=== PATIENT | female | born 1970 | race Hispanic/Latino ===

== ENCOUNTER 2021-02-19 08:43 | Emergency (ER) | payer SELFPAY ==
--- NOTE | 2021-02-19 11:14 | RAD REPORT ---
EXAM DESCRIPTION: Shoulder Right 2 View - 02/19/2021 10:40 am CLINICAL HISTORY: PAIN COMPARISON: No comparisons TECHNIQUE: Internal and external rotation views of the right shoulder were obtained. FINDINGS: There is no fracture or dislocation. AC joint is normal in appearance. Acromial humeral j oint space is normal. No abnormal soft tissue calcifications. No significant degenerative change at t he shoulder joint. IMPRESSION: Negative two-view right shoulder examination for acute or significant finding. Concerns for rotator cuff tear, other internal derangement or occult bone process can be addressed wi MR imaging.
--- NOTE | 2021-02-19 11:15 | RAD REPORT ---
EXAM DESCRIPTION: RAD - C Spine Ap/Lat - 02/19/2021 10:40 am CLINICAL HISTORY: NUMBNESS/TINGLING COMPARISON: No comparisons FINDINGS: Cervical bodies are normal in height and alignment. No fracture or acute bony process seen . No disc space narrowing. Minimal endplate spurring changes are present without central canal encroa chment. Minimal facet degenerative change. There is no prevertebral soft tissue thickening or other suspicious soft tissue finding. IMPRESSION: Negative cervical spine examination for acute or significant finding. Patient has minimal degenerative change.
[2021-02-19] MEDS ORDERED: DIAZEPAM 5 MG TABLET ONE (11:45)
[2021-02-19] MEDS ORDERED: HYDROCODONE/APAP 5/325 MG TAB ONE (11:46)
--- NOTE | 2021-02-19 12:18 | EDPHYS ---
Physician Documentation [facility] Name: Debby Osuna Age: 50 yrs Sex: Female : 1970 Arrival Date: 02/19/2021 Time: 08:47 Bed 8 Private MD: ED Physician Gabriel Tariq HPI: 02/19 10:19 This 50 yrs old Female presents to ER via Ambulatory with complaints of jmm Shoulder Pain, Arm Pain. 10:19 The patient or guardian complains of pain. Onset: The symptoms/episode began/occurred jmm gradually, 3 day(s) ago. Modifying factors: the symptoms are alleviated by nothing. The symptoms are aggravated by movement. Associated signs and symptoms: Pertinent positives: Numbness in right arm. This is a 50 year old female with no chronic medical conditions that presents to the ED with complaints of right shoulder pain worsening over the past 3 days. Pain/tingling radiates down the entire arm with neck pain. Denies weakness, chest pain. Historical: - Allergies: 09:13 No Known Allergies; ss - Home Meds: 09:13 None [Active]; ss - PMHx: 09:13 None; ss - PSHx: 09:13 ; ss - Immunization history:: Adult Immunizations up to date. - Social history:: Smoking status: Patient denies any tobacco usage or history of. ROS: 10:19 Constitutional: Negative for fever, chills, and weight loss, Cardiovascular: Negative jmm for chest pain, palpitations, and edema, Respiratory: Negative for shortness of breath, cough, wheezing, and pleuritic chest pain. 10:19 MS/extremity: Positive for pain. 10:19 All other systems are negative. Exam: 10:19 Constitutional: This is a well developed, well nourished patient who is awake, alert, jmm and in no acute distress. Head/Face: atraumatic. Eyes: EOMI, no conjunctival erythema appreciated ENT: Moist Mucus Membranes Neck: Trachea midline, Supple Chest/axilla: Normal chest wall appearance and motion. Cardiovascular: Regular rate and rhythm. 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 10:19 Skin: Appearance: Color: normal in color. 10:19 Neuro: Orientation: is normal, Mentation: is normal, Memory: is normal. 10:19 Psych: Behavior/mood is pleasant, cooperative. Vital Signs: 09:11 BP 121 / 80; Pulse 75; Resp 15; Temp 98.3(TE); Pulse Ox 100% on R/A; Height 5 ft. 5 in. ss (165.10 cm); Pain 10/10; 10:47 BP 116 / 79; Pulse 73; Resp 17; Pulse Ox 100% on R/A; Pain 10/10; ap3 MDM: 10:29 Patient medically screened. [facility] 12:16 Data reviewed: vital signs, nurses notes. Counseling: I had a detailed discussion with susy the patient and/or guardian regarding: the historical points, exam findings, and any diagnostic results supporting the discharge/admit diagnosis, radiology results, the need for outpatient follow up, to return to the emergency department if symptoms worsen or persist or if there are any questions or concerns that arise at home. ED course: Pain has decreased. Most likely cervical radiculopathy vs internal derangement of right shoulder from previous injury. Advised to follow up with ortho for further evaluation. Family understood and agrees with the plan of care. . 02/19 09:51 Order name: XRAY Shoulder RIGHT 2 view; Complete Time: 11:18 rn 02/19 10:18 Order name: XRAY C Spine Ap/lat; Complete Time: 11:18 [facility] Administered Medications: 11:30 Drug: [place] (HYDROcodone-acetaminophen) 5 mg-325 mg 1 tabs Route: PO; ap3 12:27 Follow up: Response: RASS: Alert and Calm (0) ap3 11:30 Drug: Valium (diazepam) 5 mg Route: PO; ap3 12:27 Follow up: Response: No adverse reaction ap3 Disposition: 13:13 Co-signature as Attending Physician, Gabriel Tariq MD. rn Disposition: 02/19/21 12:18 Discharged to Home. Impression: Pain in shoulder, Radiculopathy, cervical region. - Condition is Stable. - Discharge Instructions: Cervical Radiculopathy. - Prescriptions for Ultracet 37.5- 325 mg Oral Tablet - take 1 tablet by ORAL route every 6 hours - for up to 5 days; do not exceed 8 tablets per day.; 20 tablet. Zanaflex 4 mg Oral Tablet - take 1 tablet by ORAL route every 8 hours As needed; 20 tablet. Medrol (Enrike) 4 mg Oral Tablets, Dose Pack - take 1 tablet by ORAL route as directed - follow package instructions; 1 packet. - Medication Reconciliation Form, Thank You Letter, Antibiotic Education, Prescription Opioid Use form. - Follow up: Javier Soni MD; When: 2 - 3 days; Reason: Recheck today's complaints, Continuance of care, Re-evaluation by your physician. Follow up: Jw Torres MD; When: 2 - 3 days; Reason: Recheck today's complaints, Continuance of care, Re-evaluation by your physician. Signatures: Dispatcher [employer] EDMS Carlos Chilel PA PA jmm Nieto, Roman, MD MD rn Smirch, Shelby, RN RN ss Nita Newton RN RN ap3 Corrections: (The following items were deleted from the chart) 12:34 12:18 02/19/2021 12:18 Discharged to Home. Impression: Pain in shoulder; Radiculopathy, ap3 cervical region. Condition is Stable. Forms are Medication Reconciliation Form, Thank You Letter, Antibiotic Education, Prescription Opioid Use. Follow up: Dr. Javier Soni; When: 2 - 3 days; Reason: Recheck today's complaints, Continuance of care, Re-evaluation by your physician. Follow up: Jw Torres; When: 2 - 3 days; Reason: Recheck today's complaints, Continuance of care, Re-evaluation by your physician. susy
--- NOTE | 2021-02-19 12:18 | ER ---
Nurse's Notes [facility] Name: Debby Osuna Age: 50 yrs Sex: Female : 1970 Arrival Date: 02/19/2021 Time: 08:47 Bed 8 Private MD: Diagnosis: Pain in shoulder;Radiculopathy, cervical region Presentation: 02/19 09:11 Chief complaint: Patient states: R shoulder pain x 3 years, but became much worse with ss decreased range of motion since yesterday. Coronavirus screen: Client denies travel out of the [place] in the last 14 days. Ebola Screen: Patient denies exposure to infectious person. Patient denies travel to an Ebola-affected area in the 21 days before illness onset. Initial Sepsis Screen: Does the patient meet any 2 criteria? No. Patient's initial sepsis screen is negative. Does the patient have a suspected source of infection? No. Patient's initial sepsis screen is negative. Risk Assessment: Do you want to hurt yourself or someone else? Patient reports no desire to harm self or others. Onset of symptoms is unknown. 09:11 Method Of Arrival: Ambulatory ss 09:11 Acuity: RAYO 4 ss Historical: - Allergies: 09:13 No Known Allergies; ss - Home Meds: 09:13 None [Active]; ss - PMHx: 09:13 None; ss - PSHx: 09:13 ; ss - Immunization history:: Adult Immunizations up to date. - Social history:: Smoking status: Patient denies any tobacco usage or history of. Screenin:47 Abuse screen: Denies threats or abuse. Nutritional screening: No deficits noted. ap3 Tuberculosis screening: No symptoms or risk factors identified. Fall Risk None identified. Assessment: 10:44 General: Appears uncomfortable, Behavior is calm, cooperative, appropriate for age. ap3 Pain: Complains of pain in anterior aspect of right shoulder and posterior aspect of right shoulder Pain currently is 10 out of 10 on a pain scale. Pain began years ago. Neuro: Level of Consciousness is awake, alert, obeys commands, Oriented to person, place, time, situation, Gait is steady. Cardiovascular: Patient's skin is warm and dry. Respiratory: Airway is patent Respiratory effort is even, unlabored, Respiratory pattern is regular, symmetrical. EENT:. Vital Signs: 09:11 BP 121 / 80; Pulse 75; Resp 15; Temp 98.3(TE); Pulse Ox 100% on R/A; Height 5 ft. 5 in. ss (165.10 cm); Pain 10/10; 10:47 BP 116 / 79; Pulse 73; Resp 17; Pulse Ox 100% on R/A; Pain 10/10; ap3 ED Course: 08:47 Patient arrived in ED. mr 09:13 Triage completed. ss 09:13 Arm band placed on right wrist. ss 09:52 Carlos Chilel PA is PHCP. m 09:52 Gabriel Tariq MD is Attending Physician. jmm 10:40 XRAY Shoulder RIGHT 2 view In Process Unspecified. EDMS 10:40 XRAY C Spine Ap/lat In Process Unspecified. EDMS 10:44 Nita Newton, BRITNEY is Primary Nurse. ap3 10:48 Patient has correct armband on for positive identification. Bed in low position. Call ap3 light in reach. Adult w/ patient. Pulse ox on. NIBP on. 12:17 Javier Soni MD is Referral Physician. [facility] 12:17 Jw Torres MD is Referral Physician. [facility] 12:34 Patient did not have IV access during this emergency room visit. ap3 Administered Medications: 11:30 Drug: [place] (HYDROcodone-acetaminophen) 5 mg-325 mg 1 tabs Route: PO; ap3 12:27 Follow up: Response: RASS: Alert and Calm (0) ap3 11:30 Drug: Valium (diazepam) 5 mg Route: PO; ap3 12:27 Follow up: Response: No adverse reaction ap3 Outcome: 12:18 Discharge ordered by . [facility] 12:33 Discharged to home ap3 12:33 Condition: stable 12:33 Discharge instructions given to patient, family, Instructed on discharge instructions, follow up and referral plans. medication usage, Demonstrated understanding of instructions, follow-up care, medications, Prescriptions given X 3. 12:34 Patient left the ED. ap3 Signatures: Dispatcher [employer] EDMS Carlos Chilel PA PA jmm Anais RodriguezChelsea guajardo RN RN Nita Newton RN RN ap3
[2021-02-19 12:40] VITALS: TEMP 98.3; O2SAT 100
[2021-02-19 12:41] VITALS: BP 116/79
== END 2021-02-19 12:34 | disposition home or self-care (01) ==
LOC: ER 08:43
DX: M54.12 Radiculopathy, cervical region (principal)
CPT/HCPCS: 72040; 99284

== ENCOUNTER 2022-05-26 12:20 | Emergency (ER) | payer SELFPAY ==
--- NOTE | 2022-05-26 12:54 | ER ---
Nurse's Notes [facility] Name: Debby Osuna Age: 51 yrs Sex: Female : 1970 Arrival Date: 05/26/2022 Time: 12:22 Bed Waiting Private MD: Diagnosis: Otitis media, unspecified, right ear Presentation: 05/26 12:44 Chief complaint: Patient states: she started having right ear pain that radiated into ap3 her jaw yesterday. She also reports that she started having some intermittent nausea and dizziness that also began yesterday. Coronavirus screen: Client presents with at least one sign or symptom that may indicate coronavirus-19. Ebola Screen: No symptoms or risks identified at this time. Initial Sepsis Screen: Does the patient meet any 2 criteria? No. Patient's initial sepsis screen is negative. Does the patient have a suspected source of infection? No. Patient's initial sepsis screen is negative. Risk Assessment: Do you want to hurt yourself or someone else? Patient reports no desire to harm self or others. Onset of symptoms was May 25, 2022. 12:44 Method Of Arrival: Ambulatory ap3 12:44 Acuity: RAYO 4 ap3 Triage Assessment: 12:48 General: Appears uncomfortable, Behavior is calm, cooperative. Pain: Complains of pain ap3 in right ear Pain radiates to right cheek and right jaw. EENT: Reports pain in right ear. Neuro: Level of Consciousness is awake, alert, obeys commands, Oriented to person, place, time, situation, Gait is steady, Speech is normal, Facial symmetry appears normal. Cardiovascular: Patient's skin is warm and dry. Respiratory: Airway is patent Respiratory effort is even, unlabored. GI: Reports nausea. 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 - Social history:: Smoking status: Patient denies any tobacco usage or history of. Screenin:50 Abuse screen: Denies threats or abuse. Nutritional screening: No deficits noted. ap3 Tuberculosis screening: No symptoms or risk factors identified. 14:08 Fall Risk None identified. ap3 Vital Signs: 12:44 BP 125 / 82; Pulse 73; Resp 18; Temp 98.2; Pulse Ox 100% ; Weight 68.04 kg; Height 5 ap3 ft. 4 in. (162.56 cm); 12:44 Body Mass Index 25.75 (68.04 kg, 162.56 cm) ap3 ED Course: 12:22 Patient arrived in ED. rg4 12:48 Triage completed. ap3 12:48 Ko Sebastian NP is PHCP. pm1 12:48 Jean Thompson MD is Attending Physician. pm1 12:49 Arm band placed on right wrist. ap3 14:08 Patient has correct armband on for positive identification. Adult w/ patient. ap3 14:08 No provider procedures requiring assistance completed. Patient did not have IV access ap3 during this emergency room visit. Administered Medications: 14:08 Not Given (Patient Refused): HYDROcodone-acetaminophen 5 mg-325 mg 1 tabs PO once ap3 Medication: 14:08 VIS not applicable for this client. ap3 Outcome: 12:54 Discharge ordered by . pm1 14:08 Discharged to home ambulatory. ap3 14:08 Condition: good 14:08 Discharge instructions given to patient, Instructed on discharge instructions, follow up and referral plans. medication usage, Demonstrated understanding of instructions, follow-up care, medications, Prescriptions given X 2. 14:08 Patient left the ED. ap3 Signatures: Ko Sebastian NP IDENTIFICATION CLERK pm1 [facility]wood rg4 Nita Newton RN RN ap3
--- NOTE | 2022-05-26 12:54 | EDPHYS ---
Physician Documentation [facility] Name: Debby Osuna Age: 51 yrs Sex: Female : 1970 Arrival Date: 05/26/2022 Time: 12:22 Bed Waiting Private MD: ED Physician Jean Thompson HPI: 05/26 12:51 This 51 yrs old Female presents to ER via Ambulatory with complaints of Right pm1 earache. 12:51 The patient presents with pain. pm1 12:51 The complaints affect the right ear. Onset: The symptoms/episode began/occurred pm1 yesterday. Modifying factors: The symptoms are alleviated by nothing, the symptoms are aggravated by nothing. Associated signs and symptoms: Pertinent positives: dizziness, nausea, Pertinent negatives: sore throat, vomiting, dental pain. Severity of symptoms: in the emergency department the symptoms are worse. The patient has not experienced similar symptoms in the past. The patient has not recently seen a physician. Patient with right earache onset yesterday that feels the same as her prior ear infection. Patient's pain radiates to her right jaw and right cheek. 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 - Social history:: Smoking status: Patient denies any tobacco usage or history of. ROS: 12:51 Constitutional: Negative for fever, chills, and weight loss. pm1 12:51 Cardiovascular: Negative for chest pain, palpitations, and edema, Respiratory: Negative for shortness of breath, cough, wheezing, and pleuritic chest pain, MS/Extremity: Negative for injury and deformity, Skin: Negative for injury, rash, and discoloration. 12:51 ENT: Positive for ear pain, Negative for drainage from ear(s), sore throat. 12:51 Abdomen/GI: Positive for nausea, Negative for abdominal pain, vomiting, diarrhea. 12:51 Neuro: Positive for dizziness. 12:51 All other systems are negative. Exam: 12:51 Constitutional: This is a well developed, well nourished patient who is awake, alert, pm1 and in no acute distress. Head/Face: Normocephalic, atraumatic. 12:51 Skin: Warm, dry with normal turgor. Normal color with no rashes, no lesions, and no evidence of cellulitis. MS/ Extremity: Pulses equal, no cyanosis. Neurovascular intact. Full, normal range of motion. 12:51 Eyes: Exam is negative for acute changes, Extraocular movements: no acute changes, Conjunctiva: no acute changes, no injection. 12:51 ENT: Exam is negative for acute changes, Mouth: no acute changes, Lips: normal, Oral mucosa: normal, pink and intact, moist, Gums: normal with healthy appearance. 12:51 Cardiovascular: Exam negative for acute changes, Rate: normal, Rhythm: regular, Pulses: no pulse deficits are appreciated. 12:51 Respiratory: Exam negative for acute changes, respiratory distress, shortness of breath. 12:51 Abdomen/GI: Exam negative for acute changes, Palpation: abdomen is soft and non-tender, in all quadrants. 12:51 Neuro: Exam negative for acute changes, Orientation: is normal, Mentation: is normal, Motor: is normal, moves all fours. Vital Signs: 12:44 BP 125 / 82; Pulse 73; Resp 18; Temp 98.2; Pulse Ox 100% ; Weight 68.04 kg; Height 5 ap3 ft. 4 in. (162.56 cm); 12:44 Body Mass Index 25.75 (68.04 kg, 162.56 cm) ap3 MDM: 12:51 Data reviewed: vital signs. Data interpreted: Pulse oximetry: on room air is 100 %. pm1 Interpretation: normal. Counseling: I had a detailed discussion with the patient and/or guardian regarding: the historical points, exam findings, and any diagnostic results supporting the discharge/admit diagnosis, the need for outpatient follow up, to return to the emergency department if symptoms worsen or persist or if there are any questions or concerns that arise at home. 12:54 Patient medically screened. pm1 Administered Medications: 14:08 Not Given (Patient Refused): HYDROcodone-acetaminophen 5 mg-325 mg 1 tabs PO once ap3 Disposition Summary: 05/26/22 12:54 Discharge Ordered Location: Home pm1 Problem: new pm1 Symptoms: have improved pm1 Condition: Stable pm1 Diagnosis - Otitis media, unspecified, right ear pm1 Followup: pm1 - With: Emergency Department - When: As needed - Reason: Worsening of condition Followup: pm1 - With: Private Physician - When: 2 - 3 days - Reason: Recheck today's complaints, Continuance of care, Re-evaluation by your physician Discharge Instructions: - Discharge Summary Sheet pm1 - Otitis Media, Adult, [id number] pm1 Forms: - Medication Reconciliation Form pm1 - Thank You Letter pm1 - Antibiotic Education pm1 - Prescription Opioid Use pm1 Prescriptions: - Amoxicillin 500 mg Oral Capsule - take 1 capsule by ORAL route every 8 hours for 10 days; 30 tablet; Refills: 0, pm1 Product Selection Permitted Signatures: Ko Sebastian NP IMPLEMENTATION MANAGER pm1 Nita Newton RN RN ap3
[2022-05-26] MEDS ORDERED: HYDROCODONE/APAP 5/325 MG TAB ONE (14:03)
[2022-05-26 14:25] VITALS: BP 125/82; TEMP 98.2; O2SAT 100
== END 2022-05-26 14:08 | disposition home or self-care (01) ==
LOC: ER 12:20
DX: H66.91 Otitis media, unspecified, right ear (principal)
CPT/HCPCS: 99282

== ENCOUNTER 2023-05-11 19:38 | Emergency (ER) | payer SELFPAY ==
[2023-05-11 20:55] LABS: Absolute Lymphocytes (CBC) 3.4 K/uL (0.7-4.9); Hematocrit 31.1 % (36.0-45.0); Lymphocytes % 45.1 % (15.3-44.8); MPV 9.5 fL (7.6-11.3); Protime INR 0.98; RBC Red Blood Cell Count 4.32 M/uL (3.86-4.86)
[2023-05-11 21:05] LABS: Magnesium 2.2 mg/dL (1.6-2.4); Troponin High Sensitivity 3.4 pg/mL (<58.9)
[2023-05-11] MEDS ORDERED: MECLIZINE HCL 12.5 MG TAB ONE (21:50)
[2023-05-11] MEDS ORDERED: POTASSIUM 25 MEQ EFFERV TAB ONE (21:50)
--- NOTE | 2023-05-11 22:06 | RAD REPORT ---
EXAM DESCRIPTION: CT - Head Brain Wo Cont - 05/11/2023 9:59 pm CLINICAL HISTORY: DIZZINESS COMPARISON: Head Brain Wo Cont dated 03/27/2017 TECHNIQUE: All CT scans are performed using dose optimization technique as appropriate and may inclu de automated exposure control or mA/KV adjustment according to patient size. FINDINGS: No intracranial hemorrhage, hydrocephalus or extra-axial fluid collection.No areas of brai n edema or evidence of midline shift. The paranasal sinuses and mastoids are clear. The calvarium is intact. IMPRESSION: No acute intracranial abnormality.
--- NOTE | 2023-05-11 23:41 | ER ---
Nurse's Notes [facility] Name: Debby Osuna Age: 52 yrs Sex: Female : 1970 Arrival Date: 05/11/2023 Time: 19:38 Bed 2 Private MD: Diagnosis: Dizziness and giddiness;Anemia, unspecified;Hypokalemia Presentation: 05/11 20:00 Chief complaint: Patient states: Dizziness onset yesterday. Pt states that she was seen cm10 at a clinic last week and was told that she was anemic and given iron supplements. Coronavirus screen: Vaccine status: Patient reports receiving the 2nd dose of the covid vaccine. Client denies travel out of the [place] in the last 14 days. Ebola Screen: Patient denies travel to an Ebola-affected area in the 21 days before illness onset. No symptoms or risks identified at this time. Initial Sepsis Screen: Does the patient meet any 2 criteria? No. Patient's initial sepsis screen is negative. Does the patient have a suspected source of infection? No. Patient's initial sepsis screen is negative. Risk Assessment: Do you want to hurt yourself or someone else? Patient reports no desire to harm self or others. Onset of symptoms was May 10, 2023. 20:00 Method Of Arrival: Ambulatory cm10 20:00 Acuity: RAYO 3 cm10 Triage Assessment: 20:02 General: Appears in no apparent distress. comfortable, Behavior is calm, cooperative. cm10 Pain: Denies pain. Neuro: No deficits noted. Level of Consciousness is awake, alert, Oriented to person, place, time, situation, Reports dizziness, since Yesterday. Cardiovascular: No deficits noted. Respiratory: No deficits noted. Airway is patent Respiratory effort is even, unlabored, Respiratory pattern is regular, symmetrical. Derm: No deficits noted. Skin is intact, Skin is pink, warm \T\ dry. Historical: - Allergies: 20:01 No Known Allergies; cm10 - Home Meds: 20:01 Iron CR Oral [Active]; cm10 - PMHx: 20:01 Anemia; vertigo; cm10 - Immunization history:: Adult Immunizations unknown. - Social history:: Smoking status: unknown. Screenin:46 [facility] ED Fall Risk Assessment (Adult) History of falling in the last 3 months, rv including since admission No falls in past 3 months (0 pts) Confusion or Disorientation No (0 pts) Intoxicated or Sedated No (0 pts) Impaired Gait No (0 pts) Mobility Assist Device Used No (0 pt) Altered Elimination No (0 pt) Score/Fall Risk Level 0 - 2 = Low Risk Oriented to surroundings, Maintained a safe environment, Educated pt \T\ family on fall prevention, incl call for assistance when getting out of bed, Assessed \T\ reinforced patient's understanding of fall precautions, Provided non-skid footwear, Hourly rounding (assess needs \T\ fall precautionary measures) done, Used ambulatory aids as needed (educated on \T\ assisted with), Used gait belt as appropriate. Abuse screen: Denies threats or abuse. Denies injuries from another. Nutritional screening: No deficits noted. Tuberculosis screening: No symptoms or risk factors identified. Assessment: 20:47 General: Appears comfortable, Behavior is calm, cooperative. Pain: Denies pain. Neuro: rv Level of Consciousness is awake, alert, obeys commands, Oriented to person, place, time, situation, Reports dizziness. Cardiovascular: Capillary refill < 3 seconds Rhythm is regular. Respiratory: Airway is patent Respiratory effort is even, unlabored. GI: No signs and/or symptoms were reported involving the gastrointestinal system. : No signs and/or symptoms were reported regarding the genitourinary system. 21:48 Reassessment: Patient appears in no apparent distress at this time. Patient and/or as6 family updated on plan of care and expected duration. Pain level reassessed. Patient is alert, oriented x 3, equal unlabored respirations, skin warm/dry/pink. Vital Signs: 20:00 BP 153 / 103; Pulse 75; Resp 16; Temp 98.1(TE); Pulse Ox 100% on R/A; Weight 68.95 kg; cm10 Pain 0/10; 20:50 BP 139 / 87 Supine; Pulse 74; Resp 18; Pulse Ox 100% on R/A; rv 20:55 BP 160 / 93 Sitting; Pulse 74; Resp 18; Pulse Ox 100% ; rv 21:00 BP 149 / 101 Standing; Pulse 84; Resp 18; Pulse Ox 100% ; rv 21:48 BP 145 / 89; Pulse 78; Resp 20 S; Pulse Ox 99% on R/A; as6 22:47 BP 138 / 84; Pulse 68; Resp 20 S; Pulse Ox 100% on R/A; as6 05/12 00:07 BP 138 / 92; Pulse 67; Resp 14 S; Pulse Ox 100% on R/A; as6 05/11 20:00 Pain Scale: Adult cm10 ED Course: 05/11 19:39 Patient arrived in ED. am2 20:01 Triage completed. cm10 20:02 Arm band placed on Patient placed in waiting room. cm10 20:05 Jean Asencio PA is PHCP. cp 20:05 Raimundo Moses MD is Attending Physician. cp 20:25 Adarsh Landeros, BRITNEY is Primary Nurse. as6 20:30 Inserted saline lock: 20 gauge in left antecubital area, using aseptic technique. Blood rv collected. 20:47 Patient has correct armband on for positive identification. Placed in gown. Bed in low rv position. Call light in reach. Side rails up X 1. Adult w/ patient. Provided Education on: Blood Transfusion. Client placed on continuous cardiac and pulse oximetry monitoring. NIBP monitoring applied. site monitor on. 22:01 CT Head Brain wo Cont In Process Unspecified. EDMS 23:01 Troponin HS Sent. kl 05/12 00:07 No provider procedures requiring assistance completed. as6 00:11 IV discontinued, intact, bleeding controlled, No redness/swelling at site. Pressure as6 dressing applied. Administered Medications: 05/11 21:48 Drug: Meclizine PO 25 mg Route: PO; as05/12 00:11 Follow up: Response: No adverse reaction as6 05/11 21:48 Drug: Potassium PO Effervescent Tablet 50 mEq Route: PO; as6 05/12 00:10 Follow up: Response: No adverse reaction as6 00:10 Drug: Potassium PO Effervescent Tablet 50 mEq Route: PO; as 00:10 Follow up: Response: No adverse reaction as6 Medication: 05/11 20:47 VIS not applicable for this client. rv Outcome: 23:40 Discharge ordered by . cp 05/12 00:11 Discharged to home ambulatory, with family. as6 Condition: stable Discharge instructions given to patient, Instructed on discharge instructions, follow up and referral plans. medication usage, Demonstrated understanding of instructions, follow-up care, medications, Prescriptions given X 2. 00:11 Patient left the ED. as6 Signatures: Dispatcher [employer] EDPretty Leach, RN RN Jean Harper PA PA cp Moreno, Amanda am2 Vicente, Ronaldo, RN RN rv Slawson, Ashby, RN RN as6 Antonette Acevedo RN RN cm10 Corrections: (The following items were deleted from the chart) 05/11 20:02 20:01 Home Meds: None; cm10 cm10
--- NOTE | 2023-05-11 23:41 | EDPHYS ---
Physician Documentation [facility] Name: Debby Osuna Age: 52 yrs Sex: Female : 1970 Arrival Date: 05/11/2023 Time: 19:38 Bed 2 Private MD: ED Physician Raimundo Moses HPI: 05/11 20:35 This 52 yrs old Female presents to ER via Ambulatory with complaints of cp Dizziness, Abnormal Lab Results, bodyaches. 20:35 The patient presents with dizziness, lightheadedness. cp 20:35 Onset: The symptoms/episode began/occurred yesterday. cp 20:35 Associated signs and symptoms: Pertinent negatives: abdominal pain, focal weakness, cp head injury, headache, chest pain, diarrhea, vomiting. Patient's baseline: Neuro: alert and fully oriented, Motor: no deficits, Ambulation: walks without assistance, Speech: normal. Patient reports she was seen at health clinic last week and blood work showed anemia. Patient unsure how low blood count is, but reports she has been getting iron infusions. Patient denies vaginal bleeding, denies blood in stool. Historical: - Allergies: 20:01 No Known Allergies; cm10 - Home Meds: 20:01 Iron CR Oral [Active]; cm10 - PMHx: 20:01 Anemia; vertigo; cm10 - Immunization history:: Adult Immunizations unknown. - Social history:: Smoking status: unknown. ROS: 20:40 Constitutional: Negative for body aches, chills, fever, poor PO intake. cp 20:40 Eyes: Negative for injury, pain, redness, and discharge. cp 20:40 ENT: Negative for drainage from ear(s), ear pain, sore throat, difficulty swallowing, difficulty handling secretions. 20:40 Cardiovascular: Negative for chest pain, palpitations. 20:40 Respiratory: Negative for cough, shortness of breath, wheezing. 20:40 Abdomen/GI: Negative for abdominal pain, vomiting, diarrhea, constipation. 20:40 Neuro: Positive for dizziness, Negative for altered mental status, headache, loss of consciousness, syncope, weakness. 20:40 All other systems are negative. Exam: 20:45 Constitutional: The patient appears in no acute distress, alert, awake, non-toxic, well cp developed, well nourished. 20:45 Head/Face: Normocephalic, atraumatic. cp 20:45 Eyes: Periorbital structures: appear normal, Conjunctiva: normal, no exudate, no injection, Sclera: no appreciated abnormality, Lids and lashes: appear normal, bilaterally. 20:45 ENT: External ear(s): are unremarkable, Ear canal(s): are normal, clear, TM's: dullness, bilaterally, Nose: is normal, Mouth: Lips: normal, Oral mucosa: pink and intact, moist, Posterior pharynx: is normal, airway is patent, no erythema, no exudate. 20:45 Neck: ROM/movement: is normal, is supple, without pain, no range of motions limitations. 20:45 Chest/axilla: Inspection: normal. 20:45 Cardiovascular: Rate: normal, Rhythm: regular, Edema: is not appreciated, JVD: is not appreciated. 20:45 Respiratory: the patient does not display signs of respiratory distress, Respirations: normal, no use of accessory muscles, no retractions, labored breathing, is not present, Breath sounds: are clear throughout, no decreased breath sounds, no stridor, no wheezing. 20:45 Abdomen/GI: Inspection: abdomen appears normal, Palpation: abdomen is soft and non-tender, in all quadrants. 20:45 Back: pain, is absent, ROM is normal. 20:45 Neuro: Orientation: to person, place \T\ time. Mentation: is normal, Motor: moves all fours, strength is normal, Sensation: is normal. 23:05 ECG was reviewed by the Attending Physician. cp Vital Signs: 20:00 BP 153 / 103; Pulse 75; Resp 16; Temp 98.1(TE); Pulse Ox 100% on R/A; Weight 68.95 kg; cm10 Pain 0/10; 20:50 BP 139 / 87 Supine; Pulse 74; Resp 18; Pulse Ox 100% on R/A; rv 20:55 BP 160 / 93 Sitting; Pulse 74; Resp 18; Pulse Ox 100% ; rv 21:00 BP 149 / 101 Standing; Pulse 84; Resp 18; Pulse Ox 100% ; rv 21:48 BP 145 / 89; Pulse 78; Resp 20 S; Pulse Ox 99% on R/A; as6 22:47 BP 138 / 84; Pulse 68; Resp 20 S; Pulse Ox 100% on R/A; as6 05/12 00:07 BP 138 / 92; Pulse 67; Resp 14 S; Pulse Ox 100% on R/A; as6 05/11 20:00 Pain Scale: Adult cm10 MDM: 05/11 20:09 Patient medically screened. 21:00 Differential diagnosis: cardiac arrhythmia, generalized weakness, GI bleed, cp hypovolemia, idiopathic dizziness, vertigo, anemia, iron deficiency. 23:40 Data reviewed: vital signs, nurses notes, lab test result(s), radiologic studies, CT cp scan. 23:40 I considered the following discharge prescriptions or medication management in the emergency department Medications were administered in the Emergency Department. See MAR. Counseling: I had a detailed discussion with the patient and/or guardian regarding: the historical points, exam findings, and any diagnostic results supporting the discharge/admit diagnosis, lab results, radiology results, the need for outpatient follow up, a family practitioner, to return to the emergency department if symptoms worsen or persist or if there are any questions or concerns that arise at home. Response to treatment: the patient's symptoms have mildly improved after treatment, and as a result, I will discharge patient. ED course: VSS. Discussed results of today's tests indicating hemoglobin 9.2. Will discharge to home for outpatient f/u. 05/11 20:31 Order name: Basic Metabolic Panel; Complete Time: 21:37 05/11 21:37 Interpretation: Normal except: K 3.0; CL 108; GLUC 119; BUN 30; CA 8.4. 05/11 20:31 Order name: CBC with Diff 05/11 21:38 Interpretation: Normal except: HGB 9.2; HCT 31.1; MCV 72.0; MCH 21.2; MCHC 29.5; RDW cp 19.2; HONG% 40.5; LYM% 45.1; BASO% 3.0. 05/11 20:31 Order name: Magnesium; Complete Time: 21:37 05/11 20:31 Order name: PT-INR; Complete Time: 21:37 05/11 20:31 Order name: Troponin HS; Complete Time: 21:37 05/11 22:20 Order name: CBC Smear Scan EDOR 05/11 22:50 Order name: Troponin HS; Complete Time: 23:31 05/11 21:38 Order name: CT Head Brain wo Cont; Complete Time: 22:49 cp 05/11 22:49 Interpretation: Report reviewed. cp 05/11 20:31 Order name: EKG; Complete Time: 20:32 cp 05/11 22:50 Order name: EKG; Complete Time: 22:50 cp 05/11 20:31 Order name: Orthostatics; Complete Time: 21:09 cp 05/11 20:31 Order name: Cardiac monitoring; Complete Time: 20:46 cp 05/11 20:31 Order name: EKG - Nurse/Tech; Complete Time: 20:46 cp 05/11 20:31 Order name: IV Saline Lock; Complete Time: 20:46 cp 05/11 20:31 Order name: Labs collected and sent; Complete Time: 20:46 cp 05/11 20:31 Order name: O2 Per Protocol; Complete Time: 20:46 cp 05/11 20:31 Order name: O2 Sat Monitoring; Complete Time: 20:46 cp 05/11 22:50 Order name: EKG - Nurse/Tech; Complete Time: 23:01 cp EC:05 Rate is 66 beats/min. Rhythm is regular. NE interval is normal. QRS interval is normal. cp QT interval is normal. T waves are Inverted in lead aVR. Interpreted by me. Reviewed by me. Administered Medications: 21:48 Drug: Meclizine PO 25 mg Route: PO; as6 05/12 00:11 Follow up: Response: No adverse reaction as6 05/11 21:48 Drug: Potassium PO Effervescent Tablet 50 mEq Route: PO; as6 05/12 00:10 Follow up: Response: No adverse reaction as6 00:10 Drug: Potassium PO Effervescent Tablet 50 mEq Route: PO; as6 00:10 Follow up: Response: No adverse reaction as6 Disposition: 20:32 Co-signature as Attending Physician, Raimundo Moses MD I agree with the assessment sp4 and plan of care. I reviewed the patient's care provided by the Advanced Practice Provider and agree with the diagnosis and treatment plan. Disposition Summary: 05/11/23 23:40 Discharge Ordered Location: Home cp Problem: new cp Symptoms: have improved cp Condition: Stable cp Diagnosis - Dizziness and giddiness cp - Anemia, unspecified cp - Hypokalemia cp Followup: cp - With: Private Physician - When: 2 - 3 days - Reason: Recheck today's complaints Discharge Instructions: - Discharge Summary Sheet cp - Anemia cp - Potassium Content of Foods cp - Dizziness cp - Hypokalemia cp Forms: - Medication Reconciliation Form cp - Thank You Letter cp - Antibiotic Education cp - Prescription Opioid Use cp - Patient Portal [email or web address] cp Prescriptions: - Meclizine 25 mg Oral Tablet - take 1 tablet by ORAL route every 8 hours As needed; 30 tablet; Refills: 0, cp Product Selection Permitted - Potassium Chloride 10 mEq Oral capsule, extended release - take 2 tablet by ORAL route once daily; 6 tablet; Refills: 0, Product Selection cp Permitted Signatures: Dispatcher [employer] EDMS Jean Asencio PA PA cp Adarsh Landeros RN RN as6 Raimundo Moses MD MD sp4 Antonette Acevedo RN RN cm10 Corrections: (The following items were deleted from the chart) 05/11 20:02 20:01 Home Meds: None; cm10 cm10
[2023-05-12 00:01] LABS: Blood Morphology Comment NOTED (NOT SEEN); Hypochromasia 1+; Platelet Estimate ADEQ; White Blood Cell Scan OK (OK)
[2023-05-12] MEDS ORDERED: POTASSIUM 25 MEQ EFFERV TAB ONE (00:08)
[2023-05-12 01:15] VITALS: TEMP 98.1
[2023-05-12 01:20] VITALS: O2SAT 100
[2023-05-12 01:22] VITALS: BP 138/92
--- NOTE | 2023-05-12 20:22 | EKG ---
Test Date: 2023-05-11 Test Time: 20:41:58 General Office Associate: RV MEASUREMENT RESULTS: Intervals: Rate: 74 WI: 146 QRSD: 78 QT: 402 QTc: 446 [place]: P: 80 WI: 146 QRS: 74 T: 49 INTERPRETIVE STATEMENTS: Normal sinus rhythm Nonspecific ST and T wave abnormality Abnormal ECG Compared to ECG 03/26/2017 23:39:55 ST (T wave) deviation now present Electronically Signed On 05-12-23 20:21:36 CDT by Alfonso Juarez
--- NOTE | 2023-05-12 20:22 | EKG ---
Test Date: 2023-05-11 Test Time: 22:58:38 Health Administration Teacher: RV MEASUREMENT RESULTS: Intervals: Rate: 66 [place]: 146 QRSD: 80 QT: 400 QTc: 419 [place]: P: 41 [place]: 146 QRS: 71 T: 36 INTERPRETIVE STATEMENTS: Normal sinus rhythm Nonspecific ST abnormality Abnormal ECG Compared to ECG 05/11/2023 20:41:58 No significant changes Electronically Signed On 05-12-23 20:21:25 CDT by Alfonso Juarez
== END 2023-05-12 00:11 | disposition home or self-care (01) ==
LOC: ER 19:38
DX: D64.9 Anemia, unspecified (principal); E87.6 Hypokalemia
CPT/HCPCS: 36415; 70450; 80048; 83735; 84484; 85025; 85610; 93005; 99285; J8597